=== PATIENT | male | born 1955 | race Caucasian/White ===

== ENCOUNTER 2023-07-08 23:13 | Inpatient (IN) | payer OTHER, SELFPAY ==
[2023-07-08 19:02] VITALS: BP 152/90
[2023-07-08 19:45] LABS: Glucose - Point of Care 410 mg/dl (70-99)
[2023-07-08] MEDS: NSS 1000 IV ×2 (19:57→20:59)
[2023-07-08 20:00] VITALS: BP 148/89
[2023-07-08 20:06] VITALS: BP 148/89
[2023-07-08 20:12] LABS: % Basophils 0.4 % (0-2); % Eosinophils 1.6 % (0-6); % Immature Granulocytes 0.2 % (0-0.5); % Lymphocytes 13.4 % (20.5-51.1); % Monocytes 7.9 % (1.7-9.3); % Neutrophils 76.5 % (42.2-75.2); Absolute Basophils 0.1 10^3/uL (0-0.2); Absolute Eosinophils 0.2 10^3/uL (0-0.7); Absolute Lymphocytes 1.6 10^3/uL (1.2-3.4); Absolute Neutrophils 9.3 10^3/uL (1.4-6.5); Hematocrit 39.8 % (39.0-52.0); Hemoglobin 12.3 g/dL (13.0-18.0); Mean Corp Hgb Conc. 30.9 g/dL (33.0-37.0); Mean Corpuscular Hgb 24.3 pg (27.0-31.0); Mean Corpuscular Volume 78.7 fL (80.0-94.0); Mean Platelet Volume 11.5 fL (7.4-10.4); Nucleated Red Blood Cells % 0 % (-); Platelet Count 232 10^3/uL (130-400); Red Blood Cell Count 5.06 10^6/uL (4.70-6.10); Red Cell Dist. Width 15.3 % (11.5-14.5); White Blood Cell Count 12.2 10^3/uL (4.8-10.8)
[2023-07-08 20:23] LABS: Lactic Acid 1.5 mmol/L (0.7-2.0)
[2023-07-08 20:26] LABS: ALT (SGPT) 10 U/L (0-50); AST (SGOT) 12 U/L (17-59); Albumin 4.3 g/dl (3.5-5.0); Alkaline Phosphatase 111 U/L (38-126); Blood Urea Nitrogen 25 mg/dl (9-20); Calcium 9.9 mg/dl (8.4-10.2); Carbon Dioxide 27 mmol/L (22-30); Chloride 94 mmol/L (98-107); Glucose 432 mg/dl (70-99); Potassium 4.7 mmol/L (3.5-5.1); Sodium 131 mmol/L (135-145); Total Bilirubin 0.6 mg/dl (0.2-1.3); eGFR > 60.00
[2023-07-08 20:57] LABS: Glucose - Point of Care 373 mg/dl (70-99)
[2023-07-08] MEDS: MORPHINE SULFATE 4 MG IV (20:59)
[2023-07-08 21:00] VITALS: BP 153/88
[2023-07-08] MEDS: VANCOCIN 200 IV (21:00)
--- NOTE | 2023-07-08 21:10 | ED.GENMED ---
History of Present Illness
General
Chief Complaint: Skin Problem
Source: patient
Exam Limitations: none
Time Seen by Provider: 07/08/23 19:38
Travel History
Have you had any contact with someone who has COVID-19?: No
Do you have any symptoms of coronavirus? Fever > 100 degrees, chills, cough, shortness of breath, sore throat, loss of taste or smell, muscle aches, or headache?: No
History of Present Illness
History of Present Illness:
Six 7-year-old male who presents with swelling in his left neck. Sent by urgent care. Patient states this started about 2 weeks ago. He noticed a little bit of swelling. Patient admits that he used to be on insulin but his and he is
scared of needles. He is on metformin and admits that he does not take care of his diabetes well. Patient denies fevers. Does report pain in the area.
Past History
Past History
ED Past Medical History: HTN, Hypercholesterolemia and NIDDM
Social History
Tobacco: Smoker
Alcohol: Occasional
Drug: None
Personal:
Living: with family
Employment: Retired
Family History
Family History: Diabetes
Phy Exam
Physical Exam
Physical Exam:
CONSTITUTIONAL Patient alert and oriented to person, place and time. Well-appearing. Vital signs reviewed.
HEAD atraumatic, normocephalic.
EYES eyelids normal to inspection, Pupils equally round and reactive to light, Extraocular muscles intact, Conjunctiva normal, Sclera normal.
NECK normal range of motion, Trachea midline, proximal 6 cm x 5 cm mass/abscess to the left upper neck overlying the left mastoid process. There is redness and warmth. There is no active drainage. There is some fluctuance..
RESPIRATORY CHEST No respiratory distress noted, Chest expansion equal, Bilateral breath sounds clear.
CARDIOVASCULAR regular with ectopy.
UPPER EXTREMITY range of motion normal, Motor strength normal, no cyanosis, no edema.
LOWER EXTREMITY range of motion normal, Motor strength normal, no cyanosis, no edema.
NEURO Speech normal, No focal motor deficits, Earnest coma scale 15, Memory normal, Cranial Nerves intact to screening exam.
SKIN skin warm, dry, and normal in color.
Course
Orders/Labs/Results
Orders:
Orders
07/08/23 19:46
0.9% Sodium Chloride 1000 ml [Nss] 1,000 ml IV BOLUS
07/08/23 19:56
Complete Blood Count/With Diff Urgent
Comprehensive Metabolic Panel Urgent
Lactic Acid Q4H
Comment: CANCEL 2nd LACTIC ACID IF 1st LACTIC ACID IS LESS THAN 2
Blood Culture Q30M
AMARI Source: Blood/Venous
Specimen Description:
Blood Culture Q30M
AMARI Source: Blood/Venous
Specimen Description:
07/08/23 20:10
EKG [Electrocardiogram (*1)] Urgent
Reason for Study: Atrial Fibrillation
07/08/23 20:11
EKG- Treatment ONCE
07/08/23 20:52
0.9% Sodium Chloride 1000 ml [Nss] 1,000 ml IV BOLUS
Morphine Sulfate 4 mg IV NOW STA
Vancomycin 1 Gram/200 ml [Vancocin] 1 gram in 200 ml IV NOW
07/08/23 20:53
CT Neck With Iv Contrast Urgent
Comment:
Reason For Exam: L neck/mastoid abscess, r/o mastoiditis
Abnormal Lab Results
07/08/23 07/08/23 07/08/23
19:39 19:56 20:55
WBC 12.2 H 10^3/uL
(4.8-10.8)
Hgb 12.3 L g/dL
(13.0-18.0)
MCV 78.7 L fL
(80.0-94.0)
MCH 24.3 L pg
(27.0-31.0)
MCHC 30.9 L g/dL
(33.0-37.0)
RDW 15.3 H %
(11.5-14.5)
MPV 11.5 H fL
(7.4-10.4)
Absolute Neuts (auto) 9.3 H 10^3/uL
(1.4-6.5)
Absolute Monos (auto) 1.0 H 10^3/uL
(0.1-0.6)
Neutrophils % 76.5 H %
(42.2-75.2)
Lymphocytes % 13.4 L %
(20.5-51.1)
Sodium 131 L mmol/L
(135-145)
Chloride 94 L mmol/L
(98-107)
BUN 25 H mg/dl
(9-20)
Glucose 432 H mg/dl
(70-99)
AST 12 L U/L
(17-59)
POC Glucose 410 H mg/dl 373 H mg/dl
(70-99) (70-99)
07/08/23 19:56
07/08/23 19:56
Vital Signs
Initial and Last Documented VS:
Initial Vital Signs
Temp Pulse Resp BP Pulse Ox
98.4 F 90 24 152/90 99
07/08/23 19:02 07/08/23 19:02 07/08/23 19:02 07/08/23 19:02 07/08/23 19:02
Last Documented Vital Signs
Temp Pulse Resp BP Pulse Ox
99.6 F 83 25 148/89 95
07/08/23 20:58 07/08/23 20:06 07/08/23 20:06 07/08/23 20:06 07/08/23 20:06
MDM/Problems Addressed
Differential Diagnosis Includes:
Mastoiditis, skin abscess, DKA, hyperglycemia, electrolyte imbalance, dehydration
MDM/Problems Addressed:
Abscess, severe acute hyperglycemia, pseudohyponatremia
*Pulse Oximetry
Patient hypoxic: no
*EKG
Interpreted by ED Provider?: Yes
Interpretation: abnormal
Rate: normal
Rhythm: sinus and PAC's
Ischemia: non-specific ST changes
*Sound Installation Worker Interpretation
Rate: normal
Interpretation: abnormal
Rhythm: sinus and PAC's
*Critical Care Note
Total Time (30-74mins, 75-104mins- exclusive of procedures): 40 minutes
Data Reviewed
Review of Other/Old Records Reveals: Discharge Summary (2019 discharge summary reviewed)
Source: patient
Prescriptions/Medications Considered But Not Given:
Considered insulin drip but no acidosis. Suspect pure hyperglycemia
Patient Management
Discussion with other providers: Hospitalist
Escalation/DeEscalation of care consider admission/obs:
Patient is IV antibiotics and IV fluids. Continue insulin and blood glucose control. Likely will benefit from surgical or ENT consultation. Check CT to rule out mastoiditis and just overlying infection. Admit
ED Attending Note
-
Portions of this chart may have been created with voice recognition software.� Occasional wrong word or��sound alike� substitutions may have occurred due to the inherent limitations of voice recognition software.
Discharge Plan
Departure
Patient Disposition: Admit
Date of Disposition: 07/08/23
Time of Disposition: 21:14
Admit to: Telemetry
Presentation/result/management discussed w/ accepting MD/DO: Hospitalist
Discharge Problem:
Abscess, neck, Acute hyperglycemia
Prescriptions:
No Action
levothyroxine 75 MCG tablet
75 mcg PO DAILY AT 0700
metoprolol tartrate 25 MG tablet
12.5 mg PO BID
omega 7-vyg-fyc-fish oil [Fish Oil] 1 EACH capsule
2 ea PO BID
lurasidone [Latuda] 20 MG tablet
80 mg PO HS
fluoxetine 20 MG capsule
20 mg PO
gabapentin 300 MG capsule
800 mg PO TID
moxifloxacin [Vigamox] 0.5 % drops
1 drp OPHTHALMIC BID
semaglutide [Ozempic] 0.25 MG/0.2 ML pen injector
0.5 mg SQ WEEKLY
ipratropium-albuterol [Combivent Respimat] 1 PUFF mist
1 puff PO Q6HPRN PRN (Reason: wheeze/sob)
insulin glargine [Lantus U-100 Insulin] 1,000 UNITS/10 ML solution
45 units SC Q12 0RF
fluticasone propionate [Flovent HFA] 1 PUFF HFA aerosol inhaler
2 puff inhalation R BID Qty: 3 3RF
insulin aspart U-100 [Novolog FlexPen U-100 Insulin] 300 UNITS/3 ML insulin pen
26 units SC AC Qty: 180 3RF
Patient Comments:
per prescription: 55 units under the skin every morning before meal and inject 40 units at noon before meals and inject 45 units in the evening before meals (administered five to ten minutes prior to/before meals)
rosuvastatin [Crestor] 40 MG tablet
40 mg PO HS Qty: 90 0RF
famotidine 20 MG tablet
20 mg PO HS Qty: 90 3RF
Interventions
Interventions:
*Risk Screen - Suicide Last Done: 07/08/23 19:02
*General Assessment Last Done: 07/08/23 20:06
*Neglect/Abuse Screening Last Done: 07/08/23 19:02
ED-Skin Assessment Last Done: 07/08/23 21:12
[2023-07-08 21:11] VITALS: BMI 28.2
[2023-07-08] MEDS: NOVOLOG vial 8 UNITS SC (21:20)
[2023-07-08 22:00] VITALS: BP 154/79
[2023-07-08 22:20] LABS: Glucose - Point of Care 351 mg/dl (70-99)
--- NOTE | 2023-07-08 22:31 | HPS.HSE ---
Family Physician
-
Family Physician: Melina Rivera
Chief Complaint
-
neck abscess
History of Present Illness
The patient is a 67 yo male with PMH significant for DM, essential HTN, HLD, uncontrolled DM - pt has fear of needles (self administering needles) and cannot give himself insulin, presents due to an enlarging left lateral posterior neck mass that is
associated with severe neck pain, redness, swelling behind left ear. Sent to ED by Urgent care. He is only taking Metformin 1000 mg TID currently. Glucose 400s in ED. No fevers, no chills, no n/v/d, no abdominal complaints, no CP, no SOB.
ED txt:
IV Vancomycin
IV Fluids
SQ insulin 8 units
WBC 12.2, MCV 78.7, Hgb 12.3, Glucose 432, Na 131
Medical History
Past Medical History
Past Medical History: Reports GERD, HTN, Hypercholesterolemia, IDDM (not taking insulin since 1 year ago) and Other (Neuropathy, ambulatory dysfunction, schizophrenia, sleep apnea, L4-5 herniated disc)
Past Surgical History: Reports None
Social History
Tobacco: Smoker
Alcohol: Occasional
Drug: None
Family History
Family History: Not pertinent
Allergies / Home Medications
Allergies reflects when Allergies were last updated in [employer].
Home Medications with original date entered in [facility] [employer]
Allergy/Medication List:
Allergies
Allergy/AdvReac Type Severity Reaction Status Date / Time
No Known Allergies Allergy Verified 07/08/23 19:05
Home Medications
Needs updated med rec
famotidine 20 mg tablet 20 mg PO HS #90 tabs 05/19/15
fluticasone propionate 110 mcg/actuation HFA aerosol inhaler (Flovent HFA) 2 puff inhalation R BID ##3 05/19/15
insulin aspart U-100 100 unit/mL (3 mL) subcutaneous pen (Novolog FlexPen U-100 Insulin aspart) 26 units (0.26 mL) SC AC ##180 05/19/15
rosuvastatin 40 mg tablet (Crestor) 40 mg PO HS ##90 05/19/15
fluoxetine 20 mg capsule 20 mg PO 04/13/19
gabapentin 300 mg capsule 800 mg PO TID 04/13/19
ipratropium 20 mcg-albuterol 100 mcg/actuation mist for inhalation (Combivent Respimat) 1 puff PO Q6HPRN PRN wheeze/sob 04/13/19
levothyroxine 75 mcg tablet 75 mcg PO DAILY AT 0700 04/13/19
lurasidone 20 mg tablet (Latuda) 80 mg PO HS 04/13/19
metoprolol tartrate 25 mg tablet 12.5 mg PO BID 04/13/19
moxifloxacin 0.5 % eye drops (Vigamox) 1 drp OPHTHALMIC BID 04/13/19
omega 9-mnv-dzr-fish oil 300 mg-1,000 mg capsule (Fish Oil) 2 ea PO BID 04/13/19
semaglutide 0.25 mg or 0.5 mg (2 mg/1.5 mL) subcutaneous pen injector (Ozempic) 0.5 mg SQ WEEKLY 04/13/19
insulin glargine 100 unit/mL subcutaneous solution (Lantus U-100 Insulin) 45 units (0.45 mL) SC Q12 04/14/19 - not taking
Review of Systems
-
A 12 point ROS was completed and negative except as noted: Yes
Physical Exam
Vital Signs
Vital Signs
Temp Pulse Resp BP Pulse Ox
99.6 F 89 20 153/88 95
07/08/23 20:58 07/08/23 21:15 07/08/23 21:15 07/08/23 21:00 07/08/23 20:06
Physical Exam
General: Well Developed, Well Nourished, No Apparent Distress and Conversant
HEENT: Anicteric, Moist mucous membranes and Other (large red indurated mass posterior mastoid region along SCM left side fluctuant painful to touch)
Respiratory: Clear
Cardiac: S1/S2 and Regular Rhythm
GI: Soft, Non Tender and Non Distended
Musculoskeletal: No Clubbing, No Cyanosis and No Edema
Skin: Warm and Dry
Neuro: AO x 3 and No Motor Deficits
Psych: Calm
Laboratory Results
-
07/08/23 19:56
07/08/23 19:56
Laboratory Results
Lactic Acid Cancelled 07/08/23 23:45
Total Bilirubin 0.6 mg/dl (0.2-1.3) 07/08/23 19:56
AST 12 U/L (17-59) L 07/08/23 19:56
ALT 10 U/L (0-50) 07/08/23 19:56
Alkaline Phosphatase 111 U/L (38-126) 07/08/23 19:56
Data Reviewed
-
CT Scan: Report Reviewed by me (see below)
Impression/Plan
-
IMPRESSION:The patient is a 67 yo male with PMH significant for DM, essential HTN, HLD, uncontrolled DM - pt has fear of needles (self administering needles) and cannot give himself insulin, presents due to an enlarging left lateral posterior neck
mass that is associated with severe neck pain, redness, swelling behind left ear. No fevers, no chills, no n/v/d, no abdominal complaints, no CP, no SOB.
ED txt:
IV Vancomycin
IV Fluids
SQ insulin 8 units
WBC 12.2, MCV 78.7, Hgb 12.3, Glucose 432, Na 131
CT neck:
There is an approximately 7 x 3 x 9.5 cm soft tissue mass in the subcutaneous tissues of the upper posterior left neck extending along the posterior margin of the left sternocleidomastoid and anterior lateral margin of the trapezius musculature.
There is a small 7 mm low-density collection at the central portion of this mass suggesting abscess, however, the bulk of this mass is soft tissue density. This is probably inflammatory/infectious. Posttraumatic hematoma and inflammatory stranding
is included in the differential diagnosis.
Assessment:
#Left neck abscess with Large 7 x 3 x 9.5 cm soft tissue mass, likely inflammatory/infectious
-ENT consultation
-continue IV Vancomycin
-blood cx pending
-gentle IVF for 1 more liter
#DM, uncontrolled type 2, IDDM not taking insulin currently due to fear of self-administering needles
-restart Lantus, hold metformin
-SSI
-CM consultation/Sintering Press Operator consultation
-monitor glucose and adjust regimen accordingly
#Peripheral Neuropathy
-Continue Gabapentin-pt currently takes 1000 mg BID
DVT proph - Lovenox
Full Code
[2023-07-08 23:00] VITALS: BP 160/96
[2023-07-09] VITALS (7 sets, daily range): BP systolic 110–151; BP diastolic 62–99; BMI 27.9
[2023-07-09 00:40] LABS: Glucose - Point of Care 289 mg/dl (70-99)
[2023-07-09] MEDS: NSS 1000 IV (00:47)
[2023-07-09] MEDS: LEVEMIR 0.100000000000000006 UNITS SC (00:47)
[2023-07-09] MEDS: VANCOCIN 200 IV (00:49)
[2023-07-09] MEDS: DILAUDID 0.5 MG IV ×2 (00:50→21:34)
--- NOTE | 2023-07-09 01:01 | PTCARENOTE ---
Received patient from ED via stretcher. Pt AAOX3. VSS. Pox: 95% RA. IVFs infusing without difficulty. Call staples within reach. Plan of care ongoing.
[2023-07-09 06:45] LABS: % Basophils 0.4 % (0-2); % Eosinophils 2.4 % (0-6); % Immature Granulocytes 0.3 % (0-0.5); % Monocytes 8.6 % (1.7-9.3); % Neutrophils 74.3 % (42.2-75.2); Absolute Basophils 0.1 10^3/uL (0-0.2); Absolute Eosinophils 0.3 10^3/uL (0-0.7); Absolute Lymphocytes 1.6 10^3/uL (1.2-3.4); Absolute Neutrophils 8.6 10^3/uL (1.4-6.5); Hematocrit 35.3 % (39.0-52.0); Hemoglobin 10.8 g/dL (13.0-18.0); Mean Corp Hgb Conc. 30.6 g/dL (33.0-37.0); Mean Corpuscular Hgb 24.1 pg (27.0-31.0); Mean Corpuscular Volume 78.8 fL (80.0-94.0); Nucleated Red Blood Cells % 0 % (-); Platelet Count 218 10^3/uL (130-400); Red Blood Cell Count 4.48 10^6/uL (4.70-6.10); Red Cell Dist. Width 15.2 % (11.5-14.5); White Blood Cell Count 11.6 10^3/uL (4.8-10.8)
[2023-07-09 07:09] LABS: Blood Urea Nitrogen 15 mg/dl (9-20); Calcium 8.9 mg/dl (8.4-10.2); Carbon Dioxide 26 mmol/L (22-30); Chloride 100 mmol/L (98-107); Estimated Creatinine Clearance 98 ml/min; Glucose 287 mg/dl (70-99); Potassium 4.4 mmol/L (3.5-5.1); Sodium 134 mmol/L (135-145); eGFR > 60.00
[2023-07-09 07:44] LABS: Glucose - Point of Care 304 mg/dl (70-99)
[2023-07-09] MEDS: NOVOLOG FLEXPEN-MODERATE RESISTANCE 7 UNITS SC (09:40)
--- NOTE | 2023-07-09 09:58 | PHA.VAN.IN ---
Assessment
- Assessment
Renal Function: Appears similar to baseline
AUC Dosing Plan
- Dosing Variables
Dosing Weight (kg): 93
Dosing CrCl (ml/min): 98
Vd coefficient (L/kg): 0.7
- Empiric Dosing
Initial / Loading Dose: 2000mg (1g 07/07 21:00 PLUS 1g 07/08 00:49)
Maintenance Regimen: Vanc 1250mg Q12H - starting 07/09 0600 plus 1500mg x1 at 1600 tonight
Estimated AUC (mcg*h/mL): 477
Estimated Peak (mcg*h/mL): 29.9
Estimated Trough (mcg/ml): 12.1
Estimated Half Life (H): 8.1
- Monitoring
No levels ordered at this time: consider levels in next few days
Pharmacokinetics Vancomycin I
- -
Patient Age: 67
Patient Sex: Male
Vancomycin Day #: 1
Indication: Skin And Soft Tissue
Requesting Provider: Dr. Cadet
Pertinent Antimicrobial Allergies:
NKDA
Height / Weight:
Height 6 ft
Actual Weight 93.077 kg
Pertinent Past Medical History: DM
- Vital Signs / Lab Results
Temp Pulse Resp BP Pulse Ox
98.2 F 66 18 151/78 96
07/09/23 07:00 07/09/23 07:00 07/09/23 07:00 07/09/23 07:00 07/09/23 09:10
Lab Results - Hematology
07/08/23 07/09/23
19:56 06:27
WBC 12.2 H 11.6 H
Lab Results - Chemistry
07/08/23 07/09/23
19:56 06:27
BUN 25 H 15
Creatinine 1.0 0.8
Estimated Creat Clear 98
Albumin 4.3
07/08/23 07/08/23
19:56 23:45
Lactic Acid 1.5 Cancelled
--- NOTE | 2023-07-09 10:08 | PHANOTE ---
Med rec note- [place] and does not know is medication, tried to talk to patient over the phone with him but he does not recognize any of the names of the drug name that are in [facility] records. patient has
no ecw and no pharmacy records to compare to. patient did say he stopped using his injectable diabetic medication cause he can not give him self needles
[2023-07-09 10:10] LABS: Glycohemoglobin (HgbA1c) 13.9 % (4.0-5.6)
--- NOTE | 2023-07-09 11:50 | CM ---
Reviewed chart, met with patient to obtain information for assessment. Patient stated that he lives alone in a [place] and over community in a single home with no steps. Patient described himself as independent with his ADLs, personal care, dressing,
bathing, toileting and ambulates without device.
He denied any DME.
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
He has never had VN services. He has never been to a SNF.
Patient has a prescription plan and uses [facility] in [place] for all of his medications.
His PCP is, Melina Rivera DO.
Patient stated that he is frightened. Emotional support provided. He stated that he is fearful of needles. Discussed with hematology nurse educator.
Patient stated that she wanted pain medications and to use the bathroom. RN updated.
Plan: Case management will continue to follow and assist with discharge planning. Patient would like to return home when stable.
[2023-07-09] MEDS: DILAUDID 0.25 MG IV (11:57)
[2023-07-09 12:04] LABS: Glucose - Point of Care 239 mg/dl (70-99)
[2023-07-09] MEDS: NOVOLOG FLEXPEN-MODERATE RESISTANCE 3 UNITS SC ×2 (13:29→17:36)
--- NOTE | 2023-07-09 14:19 | W.PN.HOSP.TC ---
Addendum entered and electronically signed by Balta Shaikh MD 07/09/23 22:04:
Attending Addendum-
I saw and evaluated the patient. I reviewed the resident�s note and agree with findings and plan as documented in the resident�s note. Patient complains of left neck pain, 'Im going to makie it right?' Full 12 point ROS reviewed and negative except
as documented. Exam: GEN nad neck- left sided neck mass @ [id number] sravan tender fluctuant non drainaing heart RRR lungs clear abd soft LE no edema Plan:
# Left Neck Mass- likely infectious, c/s I rad for drain and culture- reviewed notes not large enough for drainage, add zosyn for extended coverage, cont vanco, ent c/s pend, cbc in am cont wound care
# Uncontrolled IDDM- hba1c- start DM education, counselled at great length re compliance/diet, will need to be on insulin as OP, start regimen while in house BB and mealtime- 12, cont to trend, accucheck q ac q hs
# Leukocytosis- cont to monitor repeat CBC in am
# Hyponatremia- mild- cont IVF repeat in am
# HLD- cont meds
# Tobacco Abuse- start socorro patch counselled re cessation
# GERD- cont meds
# Hypothyroidism- cont meds
# Peripheral Neuropathy- cont meds
# Depression- cont meds
# Pulmonary Nodule- advised to follow up as OP
Time spent coordinating care, review of plan of care with resident, review of records, med rec, consults, notes, labs, rads, d/w nursing � 53 mins
Original Note:
Today's Communication/Plan
-
Basal insulin increased to 12 units
NovoLog 4 units with each meal
Continue sliding scale
Zosyn for broader coverage
Per IR drainage of the abscess not needed now, continue IV antibiotics only
Assessment / Plan
Assessment / Plan
Impression
Left neck abscess
Uncontrolled diabetes mellitus type 2
Hypertension
History of bipolar disorder
Current tobacco user
Plan
The patient is a 67 yo male with PMH significant for DM, essential HTN, HLD, uncontrolled DM - pt has fear of needles (self administering needles) and cannot give himself insulin, presents due to an enlarging left lateral posterior neck mass that is
associated with severe neck pain, redness, swelling behind left ear. No fevers, no chills, no n/v/d, no abdominal complaints, no CP, no SOB.
Left neck abscess
Continue vancomycin
Start Zosyn for broader coverage, creatinine 0.8
Consulted IR. TT IR, from their standpoint drainage is not needed, will improve with IV antibiotics alone
CBC BMP in a.m.
Uncontrolled diabetes mellitus type 2
Increase basal insulin to 12 units
Start NovoLog 4 units 15 minutes before each meal
Continue sliding scale
Hold metformin
Goal blood glucose to be less than 200, close to 150
Monitor blood glucose level, serial Accu-Cheks
Consult diabetic nurse practitioner
Hypertension
continue ASA
History of bipolar disorder
Continue Seroquel, fluoxetine
Current current tobacco user
A pack a day
Nicotine patch ordered
Anticipated Discharge: > 48 hours
Subjective/Interval History
-
Date of Service: July 09, 2023
Patient denies SOB, CP.
Objective Data
-
Labs:
Laboratory Results
07/09/23
06:27
WBC 11.6 H
Hgb 10.8 L
Hct 35.3 L
Plt Count 218
Sodium 134 L
Potassium 4.4
Chloride 100
Carbon Dioxide 26
BUN 15
Creatinine 0.8
Glucose 287 H
Calcium 8.9
Vital Signs:
Vital Signs
Temp Pulse Resp BP Pulse Ox
98.3 F 70 17 148/76 95
07/09/23 11:00 07/09/23 11:00 07/09/23 11:00 07/09/23 11:00 07/09/23 11:00
I&O
07/08/23 07/09/23 07/10/23
06:59 06:59 06:59
Intake Total 200 / 200
Balance 200 / 200
Review of Systems
-
History Source: Patient
All other systems: Reviewed and negative (except mentioned)
Skin: Reports Other (pain)
Physical Exam
-
General: Well Developed
HEENT: Normocephalic and Atraumatic
Respiratory: Clear to Auscultation
Cardiac: Regular Rhythm and S1/S2
GI: Soft, Nontender and Nondistended
Musculoskeletal: No Edema
Skin: Warm (Large hard fluctuant, erythematous mass posterior to mastoid region along the sternocleidomastoid on left side, tender to touch)
Neuro: AO x 3
Psych: Calm
Data Reviewed
-
Labs: Labs Reviewed by me and Discussed with Physician
--- NOTE | 2023-07-09 14:35 | W.PN.UPDATE ---
Update Note
Progress Note Update
- CT scan from last night reviewed.
- Asymmetric soft attenuation/inflammation posterior to left ear with small central focus of decreased attenuation, which still measures greater than fluid attentuation
- Currently no role for US guided aspiration. Would continue IV antibiotics, re-evaluate as necessary.
[2023-07-09] MEDS: PROZAC 40 MG PO (16:24)
[2023-07-09] MEDS: ZOSYN 50 IV ×2 (16:24→21:31)
[2023-07-09] MEDS: NICODERM TRANSDERMAL 7 MG TRANSDERM (16:24)
[2023-07-09 16:56] LABS: Glucose - Point of Care 213 mg/dl (70-99)
[2023-07-09] MEDS: ZESTRIL 5 MG PO (17:36)
[2023-07-09] MEDS: VANCOCIN 300 ML IV (17:36)
[2023-07-09] MEDS: VANCOCIN 300 MG IV (17:36)
[2023-07-09] MEDS: NOVOLOG FLEXPEN 4 UNITS SC (17:41)
[2023-07-09] MEDS: SEROQUEL 400 MG PO (21:31)
[2023-07-09] MEDS: LEVEMIR 0.119999999999999996 UNITS SC (21:34)
[2023-07-09 21:40] LABS: Glucose - Point of Care 228 mg/dl (70-99)
[2023-07-10 03:40] VITALS: BP 101/58
[2023-07-10] MEDS: FLUSH (NSS) 2 FLUSH IV ×2 (04:10→22:17)
[2023-07-10] MEDS: ZOSYN 50 IV ×4 (04:10→22:15)
[2023-07-10] MEDS: DILAUDID 0.5 MG IV ×3 (04:13→19:00)
[2023-07-10] MEDS: VANCOCIN 275 MG IV ×2 (05:13→17:35)
[2023-07-10 07:00] VITALS: BP 126/74
[2023-07-10 07:10] LABS: % Basophils 0.6 % (0-2); % Eosinophils 3.1 % (0-6); % Immature Granulocytes 0.4 % (0-0.5); % Lymphocytes 19.5 % (20.5-51.1); % Monocytes 8.1 % (1.7-9.3); % Neutrophils 68.3 % (42.2-75.2); Absolute Basophils 0.1 10^3/uL (0-0.2); Absolute Eosinophils 0.3 10^3/uL (0-0.7); Absolute Lymphocytes 2.1 10^3/uL (1.2-3.4); Absolute Monocytes 0.9 10^3/uL (0.1-0.6); Absolute Neutrophils 7.3 10^3/uL (1.4-6.5); Hematocrit 33.2 % (39.0-52.0); Hemoglobin 9.9 g/dL (13.0-18.0); Mean Corp Hgb Conc. 29.8 g/dL (33.0-37.0); Mean Corpuscular Hgb 23.5 pg (27.0-31.0); Mean Corpuscular Volume 78.9 fL (80.0-94.0); Mean Platelet Volume 10.7 fL (7.4-10.4); Nucleated Red Blood Cells % 0 % (-); Platelet Count 196 10^3/uL (130-400); Red Blood Cell Count 4.21 10^6/uL (4.70-6.10); Red Cell Dist. Width 15.3 % (11.5-14.5); White Blood Cell Count 10.6 10^3/uL (4.8-10.8)
[2023-07-10 07:46] LABS: Blood Urea Nitrogen 15 mg/dl (9-20); Calcium 8.8 mg/dl (8.4-10.2); Carbon Dioxide 25 mmol/L (22-30); Chloride 104 mmol/L (98-107); Estimated Creatinine Clearance 87 ml/min; Glucose 230 mg/dl (70-99); Potassium 4.1 mmol/L (3.5-5.1); Sodium 133 mmol/L (135-145); eGFR > 60.00
[2023-07-10 08:33] LABS: Glucose - Point of Care 221 mg/dl (70-99)
--- NOTE | 2023-07-10 09:01 | PHA.VAN.FU ---
Vancomycin Assessment / Plan
- Assessment
Renal Function: Stable
WBC's are: WNL
In the past 24 hrs, patient has been: Afebrile
Concomitant Antimicrobials: piperacillin/tazobactam
- Dosing Plan
Continue: Vanc 1250mg Q12H
- Monitoring Plan
No level(s) ordered at this time: consider levels in next few days
- Follow Up
Pharmacy will continue to follow.
Vancomycin Follow UP
- -
Patient Age: 67
Patient Sex: Male
Vancomycin Day #: 2
Indication: Skin And Soft Tissue
Requesting Provider: Dr. Cadet
Pertinent Antimicrobial Allergies:
NKDA
Height / Weight:
Height 6 ft
Actual Weight 93.077 kg
Pertinent Past Medical History: DM
- Vital Signs / Lab Results
Temp Pulse Resp BP Pulse Ox
97.3 F 69 17 126/74 96
07/10/23 07:00 07/10/23 07:00 07/10/23 07:00 07/10/23 07:00 07/10/23 07:00
Lab Results - Hematology
07/08/23 07/09/23 07/10/23
19:56 06:27 06:28
WBC 12.2 H 11.6 H 10.6
Lab Results - Chemistry
07/08/23 07/09/23 07/10/23
19:56 06:27 06:28
BUN 25 H 15 15
Creatinine 1.0 0.8 0.9
Estimated Creat Clear 98 87
Albumin 4.3
07/08/23 07/08/23
19:56 23:45
Lactic Acid 1.5 Cancelled
Microbiology Results
07/08/23 19:56 Blood Culture - Preliminary
Blood/Venous No Growth in 24 hours- Final report to follow
07/08/23 19:56 Blood Culture - Preliminary
Blood/Venous No Growth in 24 hours- Final report to follow
[2023-07-10] MEDS: PROZAC 40 MG PO (09:10)
[2023-07-10] MEDS: ZESTRIL 5 MG PO (09:10)
[2023-07-10] MEDS: NOVOLOG FLEXPEN-MODERATE RESISTANCE 3 UNITS SC ×2 (09:11→13:25)
[2023-07-10] MEDS: ASPIR LOW (ENTERIC COATED) 81 MG PO (09:11)
[2023-07-10] MEDS: NICODERM TRANSDERMAL 7 MG TRANSDERM (09:11)
[2023-07-10] MEDS: NOVOLOG FLEXPEN 4 UNITS SC (09:12)
--- NOTE | 2023-07-10 10:05 | PN.DE.MGMTRT ---
Insulin Management
- -
07/10/2023 Diabetes Management Consult
Patient admitted for swelling L neck, mastoiditis vs skin abscess. PMH HCL, HTN, type 2 diabetes for ~ 15 years. Prior to admission was taking 1000 mg metformin BID. A1C on admission 13.9% cr .9, eGFR >60.
Met with patient at bedside, awake alert and oriented. His personal hygiene is poor, he is able to discuss his diabetes care. He admits he was prescribed insulin in the past but his helped his with it, she has so he stopped it.
Reviewed insulin administration and provided printed instructions for each step.
Glucose > 200 yesterday. AC novolog started 4 units, first dose with dinner. HS glucose 228. Levemir 12 units @ hs started last devonte, fasting glucose this AM 230 venous. Levemir to be off market 07/14, will change to lantus 16 units @ hs. Will
increase AC novolog to 7 units.
Will provide new glucose monitor.
Patient has an appointment with the [facility] for check up on 07/11
Diabetes History
- -
Type of Diabetes: 2 requiring insulin
Pre-Admission Diabetes Regimen
07/10/23
06:28
Creatinine 0.9
Lab Results
Hemoglobin A1c 13.9 % (4.0-5.6) H 07/09/23 06:27
Insulin Pump Settings
IP Diabetes Regimen
07/09/23 07/09/23 07/09/23
12:03 16:54 21:38
Glucose
POC Glucose 239 H 213 H 228 H
07/10/23 07/10/23
06:28 08:27
Glucose 230 H
POC Glucose 221 H
Meal type: Dinner
Meal type: Lunch
Meal type: Breakfast
Amount consumed: 10%
Amount consumed: 0
Amount consumed: 100%
Patient Education
[2023-07-10] MEDS: GLUCOPHAGE 1000 MG PO ×2 (10:14→17:24)
[2023-07-10 11:08] LABS: Glucose - Point of Care 241 mg/dl (70-99)
[2023-07-10 11:26] VITALS: BP 110/66
--- NOTE | 2023-07-10 13:00 | CON.MD ---
Consultation - Medical
-
L neck infection
67 yo c DM, HTN presents with 1 week Hx of swelling L neck
CT shows subQ soft tissue swelling with small focal area of hypodensity
Placed on IV Vanco, sl improvment. Unasyn added
PE - pt notes discomfort L neck
L neck with induration, cellulitis
With pressure , some purulence expressed, suggesting possible infected sebaceous cyst
A/p L neck infection
likely infected sebaceous cyst, soft tissue infection
no evidence of otitis
after local anesthesia, I & D performd
some purulent material expressed
sent for aerobic and anaerobic cx
warm compressess TID, cont present antibx, DM management
await culture results
[2023-07-10] MEDS: DILAUDID 0.25 MG IV ×2 (13:15→22:15)
[2023-07-10] MEDS: NOVOLOG FLEXPEN 7 UNITS SC (13:25)
[2023-07-10] MEDS: XYLOCAINE 1% WITH EPINEPHRINE 1 ML INFIL (13:25)
[2023-07-10 15:27] VITALS: BP 109/65
--- NOTE | 2023-07-10 16:35 | W.PN.HOSP.TC ---
Addendum entered and electronically signed by Balta Shaikh MD 07/10/23 21:16:
Attending Addendum-
I saw and evaluated the patient. I reviewed the resident�s note and agree with findings and plan as documented in the resident�s note. Continues to havesignificant pain in neck. Afebrile over 24 hours. Full 12 point ROS reviewed and negative except
as documented. Exam: GEN mild distress from pain neck- left sided neck mass @ [id number] tender fluctuant non draining heart RRR lungs clear abd soft LE no edema Plan:
# Left Neck Mass- likely infected sebacious cyst, cont zosyn for extended coverage, cont vanco, ent c/s- d/w Dr. Snider- for bedside I and D - 07/09 with cx to be sent, alem hedrick acoordingly, repeat cbc in am cont wound care
# Uncontrolled IDDM- hba1c 13.!- cont daily DM education, will need to be on insulin as OP, increase regimen while in house-BB and mealtime- 16, cont to trend, accucheck q ac q hs restart metformin
# HTN- increase new lisinopril, cont to monitor closely
# Leukocytosis- resolved, cont to monitor repeat CBC in am
# Hyponatremia- mild- cont IVF, repeat BMP in am
# HLD- cont meds
# Tobacco Abuse- cont socorro patch counselled re cessation
# GERD- cont meds
# Hypothyroidism- cont meds
# Peripheral Neuropathy- cont meds
# Depression- cont meds
# Pulmonary Nodule- advised to follow up as OP
Time spent coordinating care, review of plan of care with resident, review of records, med rec, consults, notes, labs, rads, d/w nursing, ENT � 57 mins
Original Note:
Today's Communication/Plan
-
Incision and drainage of the abscess
Await for cultures
Restart metformin
Adjusted diabetic medications
Assessment / Plan
Assessment / Plan
Impression
Left neck abscess
Uncontrolled diabetes mellitus type 2
Hypertension
History of bipolar disorder
Current tobacco user
Plan
The patient is a 67 yo male with PMH significant for DM, essential HTN, HLD, uncontrolled DM - pt has fear of needles (self administering needles) and cannot give himself insulin, presents due to an enlarging left lateral posterior neck mass that is
associated with severe neck pain, redness, swelling behind left ear. No fevers, no chills, no n/v/d, no abdominal complaints, no CP, no SOB.
Left neck abscess
Bedside incision and drainage of the abscess done by ENT
Await for aerobic and anaerobic cultures
Continue vancomycin and Zosyn for now
Warm compresses 3 times daily
CBC BMP in a.m.
Uncontrolled diabetes mellitus type 2
Basal insulin 16 units. Changed to Lantus (Levemir off market)
Increased NovoLog dose to 7 units 15 minutes before each meal
Continue sliding scale
Restart metformin
Goal blood glucose between 1 40-180
Monitor blood glucose level, serial Accu-Cheks
Appreciate diabetic nurse practitioner evaluation
Hypertension
Increased lisinopril to 10 mg daily
History of bipolar disorder
Continue Seroquel, fluoxetine
Current current tobacco user
A pack a day
Nicotine patch ordered
Anticipated Discharge: 24 - 48 hours
Subjective/Interval History
-
Date of Service: July 10, 2023
Patient complains of pain in the left neck around the area of the abscess
Objective Data
-
Labs:
Laboratory Results
07/10/23
06:28
WBC 10.6
Hgb 9.9 L
Hct 33.2 L
Plt Count 196
Sodium 133 L
Potassium 4.1
Chloride 104
Carbon Dioxide 25
BUN 15
Creatinine 0.9
Glucose 230 H
Calcium 8.8
Vital Signs:
Vital Signs
Temp Pulse Resp BP Pulse Ox
99.1 F 67 18 109/65 96
07/10/23 15:27 07/10/23 15:27 07/10/23 15:27 07/10/23 15:27 07/10/23 15:27
I&O
07/09/23 07/10/23 07/11/23
06:59 06:59 06:59
Intake Total 200 / 200 600 / 600
Balance 200 / 200 600 / 600
Review of Systems
-
History Source: Patient
All other systems: Reviewed and negative (Except mentioned)
Musculoskeletal: Reports Other (Pain around left neck abscess)
Physical Exam
-
General: Pain
HEENT: Normocephalic and Atraumatic
Respiratory: Clear to Auscultation
Cardiac: Regular Rhythm and S1/S2
GI: Soft and Nontender
Musculoskeletal: No Edema
Skin: Warm (Tender to touch, large erythematous 3 to 4 cm fluctuant mass, pus seen on inspection)
Neuro: AO x 3
Data Reviewed
-
Labs: Labs Reviewed by me and Discussed with Physician
[2023-07-10 16:47] LABS: Glucose - Point of Care 184 mg/dl (70-99)
[2023-07-10] MEDS: NOVOLOG FLEXPEN-MODERATE RESISTANCE 1 UNITS SC (17:34)
[2023-07-10] MEDS: NOVOLOG FLEXPEN SC (17:40)
[2023-07-10 19:42] LABS: Glucose - Point of Care 173 mg/dl (70-99)
[2023-07-10 20:22] VITALS: BP 137/83
[2023-07-10 21:19] LABS: Glucose - Point of Care 168 mg/dl (70-99)
[2023-07-10] MEDS: SEROQUEL 400 MG PO (22:15)
[2023-07-10] MEDS: LANTUS 0.160000000000000003 UNITS SC (22:16)
[2023-07-11] VITALS (8 sets, daily range): BP systolic 94–110; BP diastolic 42–69
[2023-07-11] MEDS: ZOSYN 50 IV ×4 (03:49→20:57)
[2023-07-11] MEDS: FLUSH (NSS) 2 FLUSH IV (03:49)
[2023-07-11] MEDS: DILAUDID 0.5 MG IV ×4 (03:49→16:45)
--- NOTE | 2023-07-11 04:02 | DOWNTIME ---
There was a [employer] Client [employer]arn Preparation Supervisor Downtime on 07/11/2023 from 0100 to 07/11/2023 at 0322. Downtime documentation of patient's care, including medication administrations, has been reconciled in the electronic record per guidelines. Refer to the
patient's paper chart under the miscellaneous tab to see printed paper medication records and downtime forms.
[2023-07-11] MEDS: VANCOCIN 275 MG IV ×2 (05:48→18:36)
[2023-07-11 07:17] LABS: % Basophils 0.6 % (0-2); % Immature Granulocytes 0.5 % (0-0.5); % Lymphocytes 22.1 % (20.5-51.1); % Monocytes 8.4 % (1.7-9.3); % Neutrophils 64.4 % (42.2-75.2); Absolute Basophils 0.1 10^3/uL (0-0.2); Absolute Eosinophils 0.3 10^3/uL (0-0.7); Absolute Lymphocytes 1.9 10^3/uL (1.2-3.4); Absolute Monocytes 0.7 10^3/uL (0.1-0.6); Absolute Neutrophils 5.4 10^3/uL (1.4-6.5); Hematocrit 32.7 % (39.0-52.0); Hemoglobin 9.9 g/dL (13.0-18.0); Mean Corp Hgb Conc. 30.3 g/dL (33.0-37.0); Mean Corpuscular Hgb 23.9 pg (27.0-31.0); Mean Corpuscular Volume 78.8 fL (80.0-94.0); Mean Platelet Volume 10.8 fL (7.4-10.4); Nucleated Red Blood Cells % 0 % (-); Platelet Count 199 10^3/uL (130-400); Red Blood Cell Count 4.15 10^6/uL (4.70-6.10); Red Cell Dist. Width 15.2 % (11.5-14.5); White Blood Cell Count 8.4 10^3/uL (4.8-10.8)
[2023-07-11] MEDS: GLUCOPHAGE 1000 MG PO (08:00)
[2023-07-11] MEDS: PROZAC 40 MG PO (08:00)
[2023-07-11] MEDS: ASPIR LOW (ENTERIC COATED) 81 MG PO (08:01)
[2023-07-11] MEDS: NICODERM TRANSDERMAL 7 MG TRANSDERM (08:04)
[2023-07-11 08:05] LABS: Blood Urea Nitrogen 18 mg/dl (9-20); Carbon Dioxide 26 mmol/L (22-30); Chloride 101 mmol/L (98-107); Estimated Creatinine Clearance 72 ml/min; Glucose 175 mg/dl (70-99); Sodium 133 mmol/L (135-145); eGFR > 60.00
[2023-07-11 08:09] LABS: Glucose - Point of Care 166 mg/dl (70-99)
[2023-07-11 08:11] LABS: Potassium 4.1 mmol/L (3.5-5.1)
[2023-07-11] MEDS: NOVOLOG FLEXPEN 7 UNITS SC ×3 (08:13→17:39)
[2023-07-11] MEDS: NOVOLOG FLEXPEN-MODERATE RESISTANCE 1 UNITS SC ×2 (08:13→12:59)
[2023-07-11] MEDS: ZESTRIL 10 MG PO (08:23)
--- NOTE | 2023-07-11 09:07 | PHA.VAN.FU ---
Vancomycin Assessment / Plan
- Assessment
Renal Function: SCR Increasing
WBC's are: WNL
In the past 24 hrs, patient has been: Afebrile
Concomitant Antimicrobials: piperacillin/tazobactam
- Dosing Plan
Continue: Vanc 1250mg Q12H
- Monitoring Plan
Trough Level: 07/11 05:30 to ensure non-toxic
- Follow Up
Pharmacy will continue to follow.
Vancomycin Follow UP
- -
Patient Age: 67
Patient Sex: Male
Vancomycin Day #: 3
Indication: Skin And Soft Tissue
Requesting Provider: Dr. Cadet
Pertinent Antimicrobial Allergies:
NKDA
Height / Weight:
Height 6 ft
Actual Weight 93.077 kg
Pertinent Past Medical History: DM
- Vital Signs / Lab Results
Temp Pulse Resp BP Pulse Ox
97.1 F 63 18 95/55 94
07/11/23 03:48 07/11/23 03:48 07/11/23 03:48 07/11/23 03:48 07/11/23 03:48
Lab Results - Hematology
07/08/23 07/09/23 07/10/23
19:56 06:27 06:28
WBC 12.2 H 11.6 H 10.6
07/11/23
06:56
WBC 8.4
Lab Results - Chemistry
07/08/23 07/09/23 07/10/23
19:56 06:27 06:28
BUN 25 H 15 15
Creatinine 1.0 0.8 0.9
Estimated Creat Clear 98 87
Albumin 4.3
07/11/23
06:56
BUN 18
Creatinine 1.1
Estimated Creat Clear 72
Albumin
07/08/23 07/08/23
19:56 23:45
Lactic Acid 1.5 Cancelled
Microbiology Results
07/10/23 13:37 Wound Culture - Preliminary
Neck Staph aureus MRSA
Gram Stain - Preliminary
07/08/23 19:56 Blood Culture - Preliminary
Blood/Venous No Growth in 48 hours- Final report to follow
07/08/23 19:56 Blood Culture - Preliminary
Blood/Venous No Growth in 48 hours- Final report to follow
--- NOTE | 2023-07-11 09:21 | PN.DE.MGMTRT ---
Insulin Management
- -
07/11/2023 Diabetes Management Consult
Patient admitted for swelling L neck, mastoiditis vs skin abscess. PMH HCL, HTN, type 2 diabetes for ~ 15 years. Prior to admission was taking 1000 mg metformin BID. A1C on admission 13.9% cr .9, eGFR >60.
Met with patient at bedside, awake alert and oriented. His personal hygiene is poor, he is able to discuss his diabetes care. He admits he was prescribed insulin in the past but his helped his with it, she has so he stopped it.
Reviewed insulin administration and provided printed instructions for each step.
AC novolog increased to 7 units, first dose with lunch. Glucose down to 168 @ 7pm, will make no change to novolog today. Lantus 16 units @ hs started last HS, fasting glucose this AM 166.
Provided new glucose monitor and instructed, patient states he has tested his glucose in the past. Nurse reports he needed step by step assistance with insulin prep and injection. I did review steps with him. He does not have his glasses. Nurse
will try to find readers he can use
Patient has an appointment with the [facility] for check up on 07/11.
Diabetes History
- -
Type of Diabetes: 2 requiring insulin
Pre-Admission Diabetes Regimen
07/11/23
06:56
Creatinine 1.1
Lab Results
Hemoglobin A1c 13.9 % (4.0-5.6) H 07/09/23 06:27
Insulin Pump Settings
IP Diabetes Regimen
07/10/23 07/10/23 07/10/23
11:06 16:45 19:41
Glucose
POC Glucose 241 H 184 H 173 H
07/10/23 07/11/23 07/11/23
21:17 06:56 08:08
Glucose 175 H
POC Glucose 168 H 166 H
Meal type: Lunch
Meal type: Breakfast
Amount consumed: 20%
Amount consumed: 50%
Patient Education
--- NOTE | 2023-07-11 10:35 | CM ---
Reviewed chart, patient appears to be at baseline, functionally.
Plan: Case management will continue to follow and assist with discharge planning. Likely no needs at discharge.
--- NOTE | 2023-07-11 12:00 | PTCARENOTE ---
Received pt from [facility] with RN at bedside, VSS, pt resting comfortably at this time, left neck site post absess drainage CDI open to air.
[2023-07-11 12:11] LABS: Glucose - Point of Care 173 mg/dl (70-99)
--- NOTE | 2023-07-11 16:47 | W.PN.HOSP.TC ---
Addendum entered and electronically signed by Balta Shaikh MD 07/11/23 21:08:
Attending Addendum-
I saw and evaluated the patient. I reviewed the resident�s note and agree with findings and plan as documented in the resident�s note. pain in neck improved. Afebrile over 24 hours. Full 12 point ROS reviewed and negative except as documented.
Exam: GEN NAD, Neck- left sided neck mass @ [id number] tender fluctuant minimal drainage, heart RRR lungs clear abd soft LE no edema Plan:
# MRSA Left Neck mass infection- likely infected sebaceous cyst, 07/09-bedside I and D Dr. Snider, prelim cx growing MRSA, cont zosyn and vancomycin for now until cx results finalized. Repeat cbc in am cont wound care may need additional I and D.
# Hyponatremia- mild- cont to monitor repeat BMP in am
# Uncontrolled IDDM- hba1c 13.1- cont daily DM education, will need to be on insulin as OP, continue current regimen- BB and mealtime- 16, cont to trend, accucheck q ac q hs hold metformin in care requires rads involving dye or OR.
# HTN- now hypotensive decrease new lisinopril, cont to monitor closely
# Leukocytosis- resolved, cont to monitor repeat CBC in am
# Hyponatremia- mild- cont IVF, repeat BMP in am
# HLD- cont meds
# Tobacco Abuse- increase socorro patch counselled re cessation
# GERD- cont meds
# Hypothyroidism- cont meds
# Peripheral Neuropathy- cont meds
# Depression- cont meds
# Pulmonary Nodule- advised to follow up as OP
Time spent coordinating care, review of plan of care with resident, review of records, med rec, consults, notes, labs, rads, d/w nursing � 55 mins
Original Note:
Today's Communication/Plan
-
Continue vancomycin and Zosyn
Wound culture presumptive MRSA
Wait for final results
Hold metformin
Lisinopril to 5 mg
Assessment / Plan
Assessment / Plan
Impression
Left neck abscess
Uncontrolled diabetes mellitus type 2
Hypertension
History of bipolar disorder
Current tobacco user
Plan
The patient is a 67 yo male with PMH significant for DM, essential HTN, HLD, uncontrolled DM - pt has fear of needles (self administering needles) and cannot give himself insulin, presents due to an enlarging left lateral posterior neck mass that is
associated with severe neck pain, redness, swelling behind left ear. No fevers, no chills, no n/v/d, no abdominal complaints, no CP, no SOB.
Left neck abscess
Bedside incision and drainage of the abscess done by ENT
Wound culture shows presumptive MRSA, final report to follow
Continue vancomycin and Zosyn for now
Warm compresses 3 times daily
CBC BMP in a.m.
Uncontrolled diabetes mellitus type 2
Basal insulin 16 units.
Increased NovoLog dose to 7 units 15 minutes before each meal
Continue sliding scale
Hold metformin
Goal blood glucose between 1 40-180
Monitor blood glucose level, serial Accu-Cheks
Appreciate diabetic nurse practitioner evaluation
Hypertension
Blood pressure 99/55 this a.m.
Decrease lisinopril to 5 mg
History of bipolar disorder
Continue Seroquel, fluoxetine
Current current tobacco user
21 mg nicotine patch
Anticipated Discharge: 24 - 48 hours
Subjective/Interval History
-
Date of Service: July 11, 2023
Patient reports of mild pain around the left neck abscess
Objective Data
-
Labs:
Laboratory Results
07/11/23
06:56
WBC 8.4
Hgb 9.9 L
Hct 32.7 L
Plt Count 199
Sodium 133 L
Potassium 4.1
Chloride 101
Carbon Dioxide 26
BUN 18
Creatinine 1.1
Glucose 175 H
Calcium 9.0
Vital Signs:
Vital Signs
Temp Pulse Resp BP Pulse Ox
98.4 F 62 12 98/42 96
07/11/23 15:15 07/11/23 15:15 07/11/23 15:15 07/11/23 15:15 07/11/23 15:15
I&O
07/10/23 07/11/23 07/12/23
06:59 06:59 06:59
Intake Total 600 / 600 915 / 915 120 / 120
Balance 600 / 600 915 / 915 120 / 120
Review of Systems
-
History Source: Patient
All other systems: Reviewed and negative (Except mentioned)
EENT: Reports Other (Pain around the left neck abscess)
Physical Exam
-
General: Pain
HEENT: Normocephalic and Atraumatic
Respiratory: Clear to Auscultation
Cardiac: Regular Rhythm and S1/S2
GI: Soft, Nontender and Nondistended
Musculoskeletal: No Edema
Skin: Other (Drainage of pus around the left neck abscess which is still hard and tender to touch)
Neuro: AO x 3
Psych: Calm
Data Reviewed
-
Labs: Labs Reviewed by me and Discussed with Physician
[2023-07-11 16:53] LABS: Glucose - Point of Care 148 mg/dl (70-99)
[2023-07-11] MEDS: NOVOLOG FLEXPEN-MODERATE RESISTANCE SC (16:53)
[2023-07-11] MEDS: NICODERM TRANSDERMAL 21 MG TRANSDERM (18:38)
[2023-07-11] MEDS: SEROQUEL 400 MG PO (20:50)
[2023-07-11] MEDS: DILAUDID 0.25 MG IV (20:56)
[2023-07-11] MEDS: LANTUS 0.160000000000000003 UNITS SC (20:57)
[2023-07-11 21:00] LABS: Glucose - Point of Care 128 mg/dl (70-99)
[2023-07-12] VITALS (7 sets, daily range): BP systolic 105–156; BP diastolic 57–79
[2023-07-12] MEDS: TYLENOL 650 MG PO (00:39)
[2023-07-12] MEDS: ZOSYN 50 IV ×2 (03:32→08:50)
[2023-07-12] MEDS: DILAUDID 0.25 MG IV ×2 (03:38→08:49)
[2023-07-12 06:16] LABS: Vancomycin Trough 16.6 ug/ml (5-20)
[2023-07-12 06:17] LABS: % Eosinophils 5.7 % (0-6); % Immature Granulocytes 0.5 % (0-0.5); % Lymphocytes 31.2 % (20.5-51.1); % Monocytes 9.2 % (1.7-9.3); % Neutrophils 52.4 % (42.2-75.2); Absolute Basophils 0.1 10^3/uL (0-0.2); Absolute Eosinophils 0.3 10^3/uL (0-0.7); Absolute Lymphocytes 1.8 10^3/uL (1.2-3.4); Absolute Monocytes 0.5 10^3/uL (0.1-0.6); Absolute Neutrophils 3.1 10^3/uL (1.4-6.5); Hematocrit 34.3 % (39.0-52.0); Hemoglobin 10.4 g/dL (13.0-18.0); Mean Corp Hgb Conc. 30.3 g/dL (33.0-37.0); Mean Corpuscular Hgb 23.9 pg (27.0-31.0); Mean Corpuscular Volume 78.7 fL (80.0-94.0); Mean Platelet Volume 11.2 fL (7.4-10.4); Nucleated Red Blood Cells % 0 % (-); Platelet Count 203 10^3/uL (130-400); Red Blood Cell Count 4.36 10^6/uL (4.70-6.10); Red Cell Dist. Width 15.1 % (11.5-14.5); White Blood Cell Count 5.8 10^3/uL (4.8-10.8)
[2023-07-12] MEDS: VANCOCIN 275 MG IV (06:28)
[2023-07-12 06:46] LABS: Blood Urea Nitrogen 15 mg/dl (9-20); Estimated Creatinine Clearance 87 ml/min; Glucose 120 mg/dl (70-99); eGFR > 60.00
[2023-07-12 06:47] LABS: Calcium 9.3 mg/dl (8.4-10.2); Carbon Dioxide 25 mmol/L (22-30); Chloride 100 mmol/L (98-107); Sodium 134 mmol/L (135-145)
[2023-07-12 07:31] LABS: Glucose - Point of Care 126 mg/dl (70-99)
[2023-07-12] MEDS: NOVOLOG FLEXPEN-MODERATE RESISTANCE SC (08:48)
[2023-07-12] MEDS: PROZAC 40 MG PO (08:48)
[2023-07-12] MEDS: ASPIR LOW (ENTERIC COATED) 81 MG PO (08:48)
[2023-07-12] MEDS: NICODERM TRANSDERMAL 21 MG TRANSDERM (08:48)
[2023-07-12] MEDS: NOVOLOG FLEXPEN 7 UNITS SC ×3 (08:49→17:04)
[2023-07-12] MEDS: ZESTRIL 5 MG PO (08:49)
--- NOTE | 2023-07-12 08:55 | PHA.VAN.FU ---
Vancomycin Assessment / Plan
- Assessment
Renal Function: SCR Decreasing
WBC's are: WNL
In the past 24 hrs, patient has been: Afebrile
Concomitant Antimicrobials: piperacillin/tazobactam
- Assessment - Trough Based Monitoring
Trough Value: 16.6
Level Today was: Appropriate
Level Comments: drawn ~11H after 4th maintenance dose
- Dosing Plan
Adjust Regimen to: Vanc 1000mg Q12H
New Regimen Predicts: Trough (13 by linear PK)
- Monitoring Plan
No level(s) ordered at this time: consider repeat levels in next several days
- Follow Up
Pharmacy will continue to follow.
Vancomycin Follow UP
- -
Patient Age: 67
Patient Sex: Male
Vancomycin Day #: 4
Indication: Skin And Soft Tissue
Requesting Provider: Dr. Cadet
Pertinent Antimicrobial Allergies:
NKDA
Height / Weight:
Height 6 ft
Actual Weight 93.077 kg
Pertinent Past Medical History: DM
- Vital Signs / Lab Results
Temp Pulse Resp BP Pulse Ox
97.5 F 47 14 127/68 97
07/12/23 07:35 07/12/23 08:49 07/12/23 07:35 07/12/23 08:49 07/12/23 07:35
Lab Results - Hematology
07/10/23 07/11/23 07/12/23
06:28 06:56 05:25
WBC 10.6 8.4 5.8
Lab Results - Chemistry
07/10/23 07/11/23 07/12/23
06:28 06:56 05:25
BUN 15 18 15
Creatinine 0.9 1.1 0.9
Estimated Creat Clear 87 72 87
Microbiology Results
07/10/23 13:37 Wound Culture - Preliminary
Neck Staph aureus MRSA
Gram Stain - Preliminary
07/08/23 19:56 Blood Culture - Preliminary
Blood/Venous No Growth in 72 hours- Final report to follow
07/08/23 19:56 Blood Culture - Preliminary
Blood/Venous No Growth in 72 hours- Final report to follow
Therapeutic Drug Monitoring
Vancomycin Trough 16.6 ug/ml (5-20) 07/12/23 05:25
--- NOTE | 2023-07-12 10:42 | W.PN.UPDATE ---
Update Note
Progress Note Update
L neck still hurting but improved
Afebrile, WBC normal
BS better controlled on insulin
PE - Neck still c cellulitis, with compression, still c purulent oozing from wound
Also noticed small lesion on forehead, pt states there for a few weeks
A/P L neck soft tissue infection
Some improvement
More frequent warm soaks to area, spontaneously draining
Continue Vancomycin, await sensitivities
DM management
Will need follow up as outpt, not only for neck but also to check and possibly biopsy of forehead lesion
[2023-07-12] MEDS: DILAUDID 0.5 MG IV ×3 (11:46→20:12)
[2023-07-12 11:52] LABS: Glucose - Point of Care 154 mg/dl (70-99)
[2023-07-12] MEDS: NOVOLOG FLEXPEN-MODERATE RESISTANCE 1 UNITS SC (12:10)
--- NOTE | 2023-07-12 13:12 | PN.DE.MGMTRT ---
Insulin Management
- -
07/12/2023 Diabetes Management Follow up
Patient admitted for swelling L neck, mastoiditis vs skin abscess. PMH HCL, HTN, type 2 diabetes for ~ 15 years. Prior to admission was taking 1000 mg metformin BID. A1C on admission 13.9% cr .9, eGFR >60.
Met with patient at bedside, awake alert and oriented. His personal hygiene is poor, he is able to discuss his diabetes care. He admits he was prescribed insulin in the past but his helped him with it, she has so he stopped it.
AC novolog increased to 7 units,07/09. Glucose range pre meal yesterday 128 to 173. Lantus 16 units @ hs continues, fasting glucose this AM 120.
Provided new glucose monitor and instructed, yesterday; patient states he has tested his glucose in the past. Nurse reports he needed step by step assistance with insulin prep and injection. I did review steps with him again today. Provided BD
Radha needles for patient to practice self injections with nursing supervision.
Diabetes History
- -
Type of Diabetes: 2 requiring insulin
Pre-Admission Diabetes Regimen
07/12/23
05:25
Creatinine 0.9
Lab Results
Hemoglobin A1c 13.9 % (4.0-5.6) H 07/09/23 06:27
Insulin Pump Settings
IP Diabetes Regimen
07/11/23 07/11/23 07/12/23
16:52 20:57 05:25
Glucose 120 H
POC Glucose 148 H 128 H
07/12/23 07/12/23
07:28 11:33
Glucose
POC Glucose 126 H 154 H
Meal type: Dinner
Amount consumed: 100%
Patient Education
--- NOTE | 2023-07-12 16:05 | CM ---
Reviewed the chart notes and spoke with the patient at the bedside. IMM signed and placed on the chart. CM continues to be available to patient/family and is monitoring medical plan for needs at discharge.
Plan: Discharge to home with no additional need being identified at this time.
--- NOTE | 2023-07-12 16:23 | W.PN.HOSP.TC ---
Addendum entered and electronically signed by Balta Shaikh MD 07/12/23 21:17:
Attending Addendum-
I saw and evaluated the patient. I reviewed the resident�s note and agree with findings and plan as documented in the resident�s note. afebrile and paoin improved. still with minimal drainage present. Full 12 point ROS reviewed and negative except
as documented. Exam: GEN NAD, Neck- left sided neck mass @ [id number] tender fluctuant minimal brown drainage, heart RRR lungs clear abd soft LE no edema Plan:
# MRSA Left Neck mass infection- likely infected sebaceous cyst, 07/09-bedside I and D Dr. Snider, cx growing MRSA sensitivities reviewed, cont vancomycin. apply warm ccompress and massage to expectorate more fluid/pus. Repeat cbc in am cont wound
care. DC in am on PO abx
# Hyponatremia- mild- cont to monitor repeat BMP in am
# IDDM- hba1c 13.1- much better controlled, cont daily DM education, will need to be on BB and mealtime insulin as OP, continue current regimen- BB and mealtime- 16, cont to trend accucheck q ac q hs hold metformin in case requires rads
involving dye or OR/ restart on DC
# HTN- controlled on decrease new lisinopril, cont to monitor closely
# Leukocytosis- resolved, cont to monitor repeat CBC in am
# HLD- cont meds
# Tobacco Abuse- cont socorro patch counselled re cessation
# GERD- cont meds
# Hypothyroidism- cont meds
# Peripheral Neuropathy- cont meds
# Depression- cont meds
# Pulmonary Nodule- advised to follow up as OP
Time spent coordinating care, review of plan of care with resident, DC planning, review of records, med rec, consults, notes, labs, rads, d/w nursing � 53 mins
Original Note:
Today's Communication/Plan
-
Plan to discharge tomorrow on oral antibiotics
Assessment / Plan
Assessment / Plan
Impression
Left neck abscess
Uncontrolled diabetes mellitus type 2
Hypertension
History of bipolar disorder
Current tobacco user
Plan
The patient is a 67 yo male with PMH significant for DM, essential HTN, HLD, uncontrolled DM - pt has fear of needles (self administering needles) and cannot give himself insulin, presents due to an enlarging left lateral posterior neck mass that is
associated with severe neck pain, redness, swelling behind left ear. No fevers, no chills, no n/v/d, no abdominal complaints, no CP, no SOB.
Left neck abscess
I&D
Wound culture positive for MRSA and few coagulase-negative Staphylococcus
continue vancomycin-day 4
Discontinue Zosyn
More frequent warm compresses, attempt to drain the pus, tiny amount of drainage. The area is draining spontaneously.
CBC BMP in a.m.
Plan to discharge tomorrow on oral antibiotics, will switch to doxycycline 100 mg twice daily for 6 days
-Follow-up outpatient with ENT for the abscess and lesion on the forehead.
Uncontrolled diabetes mellitus type 2
Blood glucose level improving, today 120
Continue basal insulin 16 units, NovoLog dose to 7 units 15 minutes before each meal
Continue sliding scale
Hold metformin
Goal blood glucose between 1 40-180
Monitor blood glucose level, serial Accu-Cheks
Hypertension
Blood pressure 99/55 this a.m.
Decrease lisinopril to 5 mg
History of bipolar disorder
Continue Seroquel, fluoxetine
Current current tobacco user
21 mg nicotine patch
Anticipated Discharge: Within 24 hours
Subjective/Interval History
-
Date of Service: July 12, 2023
Objective Data
-
Labs:
Laboratory Results
07/12/23
05:25
WBC 5.8
Hgb 10.4 L
Hct 34.3 L
Plt Count 203
Sodium 134 L
Potassium 4.0
Chloride 100
Carbon Dioxide 25
BUN 15
Creatinine 0.9
Glucose 120 H
Calcium 9.3
Vital Signs:
Vital Signs
Temp Pulse Resp BP Pulse Ox
98.1 F 61 14 156/70 97
07/12/23 15:40 07/12/23 15:40 07/12/23 15:40 07/12/23 15:40 07/12/23 15:40
I&O
07/11/23 07/12/23 07/13/23
06:59 06:59 06:59
Intake Total 915 / 915 1340 / 1340
Balance 915 / 915 1340 / 1340
Review of Systems
-
History Source: Patient
All other systems: Reviewed and negative
Physical Exam
-
General: No Apparent Distress
HEENT: Atraumatic and Neck Masses (Large erythematous mass has decreased in size, hard and tender to touch)
Respiratory: Clear to Auscultation
Cardiac: Regular Rhythm and S1/S2
Musculoskeletal: No Edema
Neuro: AO x 3
Psych: Calm
[2023-07-12 16:54] LABS: Glucose - Point of Care 164 mg/dl (70-99)
[2023-07-12] MEDS: NOVOLOG FLEXPEN-LOW RESISTANCE 1 UNITS SC (17:05)
[2023-07-12] MEDS: VANCOCIN 200 IV (17:06)
[2023-07-12] MEDS: SEROQUEL 400 MG PO (21:34)
[2023-07-12 22:08] LABS: Glucose - Point of Care 111 mg/dl (70-99)
[2023-07-12] MEDS: LANTUS 0.160000000000000003 UNITS SC (22:08)
[2023-07-13 03:52] VITALS: BP 114/69
[2023-07-13 05:00] LABS: % Basophils 0.6 % (0-2); % Eosinophils 4.6 % (0-6); % Immature Granulocytes 0.4 % (0-0.5); % Lymphocytes 26.8 % (20.5-51.1); % Monocytes 8.7 % (1.7-9.3); % Neutrophils 58.9 % (42.2-75.2); Absolute Eosinophils 0.3 10^3/uL (0-0.7); Absolute Lymphocytes 1.9 10^3/uL (1.2-3.4); Absolute Monocytes 0.6 10^3/uL (0.1-0.6); Absolute Neutrophils 4.1 10^3/uL (1.4-6.5); Hematocrit 33.4 % (39.0-52.0); Hemoglobin 10.4 g/dL (13.0-18.0); Mean Corp Hgb Conc. 31.1 g/dL (33.0-37.0); Mean Corpuscular Hgb 24.1 pg (27.0-31.0); Mean Corpuscular Volume 77.5 fL (80.0-94.0); Nucleated Red Blood Cells % 0 % (-); Platelet Count 222 10^3/uL (130-400); Red Blood Cell Count 4.31 10^6/uL (4.70-6.10)
[2023-07-13] MEDS: VANCOCIN 200 IV (05:15)
[2023-07-13 05:20] LABS: Blood Urea Nitrogen 17 mg/dl (9-20); Calcium 9.6 mg/dl (8.4-10.2); Carbon Dioxide 26 mmol/L (22-30); Chloride 100 mmol/L (98-107); Estimated Creatinine Clearance 98 ml/min; Glucose 137 mg/dl (70-99); Potassium 3.9 mmol/L (3.5-5.1); Sodium 133 mmol/L (135-145); eGFR > 60.00
[2023-07-13 07:00] VITALS: BP 118/85
[2023-07-13 07:58] LABS: Glucose - Point of Care 138 mg/dl (70-99)
[2023-07-13] MEDS: ZESTRIL 5 MG PO (08:25)
[2023-07-13] MEDS: ASPIR LOW (ENTERIC COATED) 81 MG PO (08:25)
[2023-07-13] MEDS: PROZAC 40 MG PO (08:25)
[2023-07-13] MEDS: NICODERM TRANSDERMAL 21 MG TRANSDERM (08:26)
[2023-07-13] MEDS: NOVOLOG FLEXPEN 7 UNITS SC ×2 (08:27→13:40)
[2023-07-13] MEDS: NOVOLOG FLEXPEN-LOW RESISTANCE SC (08:28)
[2023-07-13] MEDS: DILAUDID 0.5 MG IV ×2 (09:07→13:39)
--- NOTE | 2023-07-13 10:46 | PHA.VAN.FU ---
Vancomycin Assessment / Plan
- Assessment
Renal Function: SCR Decreasing (1.1-<0.9->0.8)
WBC's are: WNL
In the past 24 hrs, patient has been: Afebrile
Concomitant Antimicrobials: none
- Assessment - Trough Based Monitoring
Trough Value: 16.6 on 07/12/23 (regimen was 1250 mg q12h)
- Dosing Plan
Continue: vancomycin 1000 mg q12h
- Monitoring Plan
No level(s) ordered at this time: consider repeat levels in next couple days if still on
- Follow Up
Pharmacy will continue to follow.
Vancomycin Follow UP
- -
Patient Age: 67
Patient Sex: Male
Vancomycin Day #: 5
Indication: Skin And Soft Tissue
Requesting Provider: Dr. Cadet
Pertinent Antimicrobial Allergies:
NKDA
Height / Weight:
Height 6 ft
Actual Weight 93.077 kg
Pertinent Past Medical History: DM
- Vital Signs / Lab Results
Temp Pulse Resp BP Pulse Ox
98.0 F 67 18 118/85 99
07/13/23 07:00 07/13/23 08:25 07/13/23 07:00 07/13/23 08:25 07/13/23 07:00
Lab Results - Hematology
07/11/23 07/12/23 07/13/23
06:56 05:25 04:30
WBC 8.4 5.8 7.0
Lab Results - Chemistry
07/11/23 07/12/23 07/13/23
06:56 05:25 04:30
BUN 18 15 17
Creatinine 1.1 0.9 0.8
Estimated Creat Clear 72 87 98
Microbiology Results
07/08/23 19:56 Blood Culture - Preliminary
Blood/Venous No Growth in 4 days- Final report to follow
07/08/23 19:56 Blood Culture - Preliminary
Blood/Venous No Growth in 4 days- Final report to follow
07/10/23 13:37 Wound Culture - Final
Neck Staph aureus MRSA
Coagulase neg. staphylococcus
Gram Stain - Final
Therapeutic Drug Monitoring
Vancomycin Trough 16.6 ug/ml (5-20) 07/12/23 05:25
[2023-07-13 11:00] VITALS: BP 145/68
--- NOTE | 2023-07-13 11:16 | PN.DE.MGMTRT ---
Insulin Management
- -
07/13/2023 Diabetes Management Follow up
Patient admitted for swelling L neck, mastoiditis vs skin abscess. PMH HCL, HTN, type 2 diabetes for ~ 15 years. Prior to admission was taking 1000 mg metformin BID. A1C on admission 13.9% cr .9, eGFR >60.
Met with patient at bedside, awake alert and oriented. He is able to discuss his diabetes care. He admits he was prescribed insulin in the past but his helped him with it, she has so he stopped it.
AC novolog increased to 7 units started 07/09. Glucose range pre meal yesterday 128 to 154. Lantus 16 units @ hs continues, fasting glucose this AM 120.
Provided new glucose monitor and instructed, 07/10; patient states he has tested his glucose in the past. Nurse reports he still requires some verbal cues for insulin insulin prep and injection but he is improving. I did review steps with him again
today. Provided BD Radha needles for patient to practice self injections with nursing supervision.
Diabetes History
- -
Type of Diabetes: 2 requiring insulin
Pre-Admission Diabetes Regimen
07/13/23
04:30
Creatinine 0.8
Lab Results
Hemoglobin A1c 13.9 % (4.0-5.6) H 07/09/23 06:27
Insulin Pump Settings
IP Diabetes Regimen
07/12/23 07/12/23 07/12/23
11:33 16:53 22:02
Glucose
POC Glucose 154 H 164 H 111 H
07/13/23 07/13/23
04:30 07:57
Glucose 137 H
POC Glucose 138 H
Meal type: Dinner
Meal type: Lunch
Meal type: Breakfast
Amount consumed: 85%
Amount consumed: 50%
Amount consumed: 100%
Patient Education
[2023-07-13 11:42] LABS: Glucose - Point of Care 194 mg/dl (70-99)
--- NOTE | 2023-07-13 11:47 | W.PN.ENT ---
Today's Communication
-
patient seen at bedside
Impression / Plan
-
Slowly improving MRSA infection of skin
Continue Vancomycin
Subjective Data
-
getting better slowly
less tenderness
Objective Data
-
Vital Signs
Temp Pulse Resp BP Pulse Ox
98.7 F 64 16 145/68 95
07/13/23 11:00 07/13/23 11:00 07/13/23 11:00 07/13/23 11:00 07/13/23 11:00
Intake & Output
07/12/23 07/13/23 07/14/23
06:59 06:59 06:59
Intake:
Oral fluids 1240 / 1240 1720 / 1720
IV piggybacks 100 / 100 200 / 200
Other:
Number of approximated SMALL 1 2
amounts of urine
Number of approximated MODERATE 2 3 1
amounts of urine
Lab Results
07/13/23 04:30
07/13/23 04:30
Calcium 9.6 mg/dl (8.4-10.2) 07/13/23 04:30
Total Bilirubin 0.6 mg/dl (0.2-1.3) 07/08/23 19:56
AST 12 U/L (17-59) L 07/08/23 19:56
ALT 10 U/L (0-50) 07/08/23 19:56
Alkaline Phosphatase 111 U/L (38-126) 07/08/23 19:56
Physical Exam
-
right posterior neck skin swollen but decreased
Chest: Clear
Respiratory: Clear
Data Reviewed
-
Radiology Results: Report Reviewed
Micro Results: Report Reviewed
--- NOTE | 2023-07-13 13:26 | W.PN.HOSP.TC ---
Addendum entered and electronically signed by Balta Shaikh MD 07/13/23 20:52:
Attending Addendum-
I saw and evaluated the patient. I reviewed the resident�s note and agree with findings and plan as documented in the resident�s note. pain much improved, less drainage. excited to go home. Full 12 point ROS reviewed and negative except as
documented. Exam: GEN NAD, Neck- left sided neck mass @ [id number] tender fluctuant minimal brown drainage, heart RRR lungs clear abd soft LE no edema Plan:
# MRSA Left Neck mass infection- resolving, likely infected cyst, 07/09-bedside I and D Dr. Snider, cx growing MRSA DC on PO abx
# Hyponatremia- mild- cont to monitor as OP
# IDDM- hba1c 13.1- much better controlled, cont daily DM education, will need to contonue BB and mealtime insulin as OP, continue current regimen- BB and mealtime- 16, excellent control, DC home on current regimin with metformin
# HTN- controlled on new lisinopril-cont as OP
# Leukocytosis- resolved, cont to monitor repeat CBC as OP
# HLD- cont meds
# Tobacco Abuse- cont socorro patch counselled re cessation
# GERD- cont meds
# Hypothyroidism- cont meds
# Peripheral Neuropathy- cont meds
# Depression- cont meds
# Pulmonary Nodule- advised to follow up as OP
Dispo- DC home today
[facility] spent [facility], [facility] medical supplies and meds, review of plan of care with resident, DC planning, review of records, med rec, consults, notes, labs, rads, d/w nursing � 39 mins
Original Note:
Today's Communication/Plan
-
Patient doing well, discharging today
Assessment / Plan
Assessment / Plan
Impression
Left neck abscess
Uncontrolled diabetes mellitus type 2
Hypertension
History of bipolar disorder
Current tobacco user
Plan
The patient is a 67 yo male with PMH significant for DM, essential HTN, HLD, uncontrolled DM - pt has fear of needles (self administering needles) and cannot give himself insulin, presents due to an enlarging left lateral posterior neck mass that is
associated with severe neck pain, redness, swelling behind left ear. No fevers, no chills, no n/v/d, no abdominal complaints, no CP, no SOB.
Left neck abscess
Discharge home today
I&D
Wound culture positive for MRSA and few coagulase-negative Staphylococcus
More frequent warm compresses
Switching to oral antibiotics, will switch to doxycycline 100 mg twice daily for 5 days
-Follow-up outpatient with ENT for the abscess and lesion on the forehead.
Uncontrolled diabetes mellitus type 2
Blood glucose level improving
Discharge on basal insulin 16 units, NovoLog dose to 7/7/7 units 15 minutes before each meal, metformin
Glucose monitor given to the patient
Advised to check glucose before breakfast and postprandial
Hypertension
Continue lisinopril 5 mg daily
History of bipolar disorder
Continue Seroquel, fluoxetine
Current current tobacco user
21 mg nicotine patch
# EKG 07/12- JUNCTIONAL RHYTHM WITH FREQUENT PREMATURE VENTRICULAR COMPLEXES
-Discussed EKG results with Dr. Ho and the nurse.
-Patient stable to be discharged.
Anticipated Discharge: Today
Subjective/Interval History
-
Date of Service: July 13, 2023
Patient denies chest pain shortness of breath.
Objective Data
-
Labs:
Laboratory Results
07/13/23
04:30
WBC 7.0
Hgb 10.4 L
Hct 33.4 L
Plt Count 222
Sodium 133 L
Potassium 3.9
Chloride 100
Carbon Dioxide 26
BUN 17
Creatinine 0.8
Glucose 137 H
Calcium 9.6
Vital Signs:
Vital Signs
Temp Pulse Resp BP Pulse Ox
98.7 F 64 16 145/68 95
07/13/23 11:00 07/13/23 11:00 07/13/23 11:00 07/13/23 11:00 07/13/23 11:00
I&O
07/12/23 07/13/23 07/14/23
06:59 06:59 06:59
Intake Total 1340 / 1340 1919
Balance 1340 / 1340 1919
Review of Systems
-
History Source: Patient
All other systems: Reviewed and negative
Physical Exam
-
General: Obese
HEENT: Normocephalic and Atraumatic
Respiratory: Clear to Auscultation
Cardiac: Regular Rhythm and S1/S2
GI: Soft, Nontender and Nondistended
Musculoskeletal: No Edema
Skin: Warm (Erythematous mamas around the left neck near the sternocleidomastoid, improving, hard and tender to touch, spontaneous drainage from the abscess)
Neuro: AO x 3
Data Reviewed
-
Medical Tests (Nuc Med, Echo etc): Report Reviewed by me and Discussed with Physician
Labs: Labs Reviewed by me and Discussed with Physician
--- NOTE | 2023-07-13 13:35 | CM ---
CM reviewed the chart notes and spoke with the patient at the bedside. The patient is being discharged to home today with no additional needs being identified at this time. Patient drove self to hospital. CM continues to be available to
patient/family and is monitoring medical plan for needs at discharge.
Plan: Discharge to home today. Patient will drive self home.
[2023-07-13] MEDS: NOVOLOG FLEXPEN-LOW RESISTANCE 1 UNITS SC (13:40)
--- NOTE | 2023-07-13 13:44 | W.DCSUMMARY ---
Addendum entered and electronically signed by Balta Shaikh MD 07/13/23 20:52:
Attending Addendum:
Read reviewed and agree. See same day progress note for additional details.
Jimmy Shaikh MD
Original Note:
Documented by User: Lindsay Fletcher MD, Resident 07/13/23 13:45
Discharge Summary
Discharge Data
Date of Admission: 07/08/23
Date of Discharge: 07/13/23
-
Pending Results: No
Hospital Course
Discharge diagnosis
Left neck abscess
Uncontrolled diabetes mellitus type 2
Hypertension
History of bipolar disorder
Current tobacco user
Hospital course :
67-year-old male presented to the ED with swelling in his left neck. He was having the symptoms for about 2 weeks he also. Has type 2 diabetes mellitus for which he was advised insulin but as he was scared of needles he only took oral medication
which was metformin. Initial vitals in the ED hypertensive tachycardic afebrile. In the ED the patient was started with normal saline and had some lab work done blood cultures lactic acid level and imaging including CT neck with IV contrast. In
the ED labs drawn which showed blood glucose level to be 432 with A1c of 13.9. CAT scan confirmed 7x3x9.5 cm soft tissue mass in the subcutaneous tissue of the upper posterior left neck extending along the posterior margin of the left
sternocleidomastoid. IV vancomycin was started with moderate dose insulin sliding scale. As the blood cultures were still pending, we added another medication IV Zosyn for broader coverage. ENT was consulted and an attempt for incision and
drainage was was performed which extracted 10 mL of purulent fluid. Blood culture showed positive for MRSA. In the meantime regarding his uncontrolled diabetes mellitus, patient was started on 12 units of Levemir and 4 units of NovoLog. Blood
glucose were trending down, 287<432. Goal blood glucose level between 1 40-1 80. Over the course of hospital stay, let Levemir was switched to Lantus and dose was titrated up to 16 units, NovoLog up to 7 units with sliding scale. Diabetic nurse
practitioner counseled the patient about the use of FlexPen and the importance of diabetes control. Today the plan is to discharge patient on doxycycline 100 mg twice daily for 6 more days, in regards to diabetes Lantus 16 units, NovoLog 7 units,
continue metformin 1000 mg twice daily.
Left neck abscess
Oral doxycycline twice daily for 5 days
Warm compresses 3 times daily
Uncontrolled type 2 diabetes mellitus
Starting on Lantus 16 units NovoLog 7 units 3 times daily, metformin 1000 mg twice daily
Follow-up with outpatient PCP. [facility], family medicine residency office.
Hypertension
Lisinopril 5 mg daily
History of bipolar disorder
Resume on home medications
Current tobacco use
Discharged with 21 mg nicotine patch
Discharge Plan
-
Patient Disposition: Home (Routine Discharge)
Discharge Diagnosis/Procedures: Left neck abscess
Uncontrolled diabetes mellitus type 2
Hypertension
History of bipolar disorder
Current tobacco user
Condition: Fair
Diet: Diabetic, Carb Controlled
Wound Care: clean the wound with soap and water
Frequent warm compress 4 times daily
Referrals:
Melina Rivera, [Family Provider] -
Additional Discharge Medication Instructions: Doxycycline 100 mg twice daily for 5 more days-for left neck abscess, positive for MRSA
Lantus 16 units at bedtime-type 2 diabetes
NovoLog 7 units each 15 minutes before breakfast, lunch, dinner-type 2 diabetes
Metformin 1000 mg p.o. twice daily-type 2 diabetes
Aspirin 81 mg daily
Nicotine patch 21 mg
Prescriptions:
New
metformin 1,000 mg Tablet
1,000 mg PO BID@0800,1700 Qty: 30 2RF
insulin glargine [Lantus Solostar U-100 Insulin] 100 unit/mL (3 mL) insulin pen
12 unit SC QPM 30 Days Qty: 3.6 2RF
insulin aspart U-100 [Novolog FlexPen U-100 Insulin] 100 unit/mL (3 mL) insulin pen
7 unit SC TID 30 Days Qty: 6.3 2RF
lisinopril 5 mg Tablet
5 mg PO DAILY Qty: 30 2RF
nicotine 21 mg/24 hr Patch 24 Hour
21 mg transdermal DAILY Qty: 30 0RF
(DME) pen needle, diabetic 29 gauge x 3/8' needle
See Rx Instructions .Route Qty: 100 0RF
Rx Instructions:
As directed
Continued
quetiapine [Seroquel] 200 mg Tablet
400 mg PO HS Qty: 30 0RF
Patient Comments:
verifed by [facility] [place] [phone]
aspirin 81 mg Tablet,Delayed Release (Dr/Ec)
81 mg PO DAILY Qty: 30 0RF
Patient Comments:
verifed by [facility] [place] [phone]
fluoxetine 20 MG capsule
40 mg PO DAILY Qty: 30 0RF
Patient Comments:
verifed by [facility] [place] [phone]
Discontinued
metformin 1,000 mg Tablet
1,000 mg PO BID
Patient Comments:
verifed by [facility] [place] [phone]
Discharge Orders:
Discharge Patient (As Directed); Ordered 07/13/23
Ordered By: Lindsay Fletcher
Discharge Date and Time
Discharge Date/Time: 07/13/23 17:12
Print Language: ARABIC

Documented by User: Balta Shaikh MD 07/13/23 20:48
Discharge Summary
Discharge Data
Date of Admission: 07/08/23
Date of Discharge: 07/13/23
Discharge Plan
-
Patient Disposition: Home (Routine Discharge)
Discharge Diagnosis/Procedures: Left neck abscess
Uncontrolled diabetes mellitus type 2
Hypertension
History of bipolar disorder
Current tobacco user
Condition: Fair
Diet: Diabetic, Carb Controlled
Wound Care: clean the wound with soap and water
Frequent warm compress 4 times daily
Referrals:
Melina Rivera DO [Family Provider] -
Additional Discharge Medication Instructions: Doxycycline 100 mg twice daily for 5 more days-for left neck abscess, positive for MRSA
Lantus 16 units at bedtime-type 2 diabetes
NovoLog 7 units each 15 minutes before breakfast, lunch, dinner-type 2 diabetes
Metformin 1000 mg p.o. twice daily-type 2 diabetes
Aspirin 81 mg daily
Nicotine patch 21 mg
Prescriptions:
New
metformin 1,000 mg Tablet
1,000 mg PO BID@0800,1700 Qty: 30 2RF
insulin glargine [Lantus Solostar U-100 Insulin] 100 unit/mL (3 mL) insulin pen
12 unit SC QPM 30 Days Qty: 3.6 2RF
insulin aspart U-100 [Novolog FlexPen U-100 Insulin] 100 unit/mL (3 mL) insulin pen
7 unit SC TID 30 Days Qty: 6.3 2RF
lisinopril 5 mg Tablet
5 mg PO DAILY Qty: 30 2RF
nicotine 21 mg/24 hr Patch 24 Hour
21 mg transdermal DAILY Qty: 30 0RF
(DME) pen needle, diabetic 29 gauge x 3/8' needle
See Rx Instructions .Route Qty: 100 0RF
Rx Instructions:
As directed
Continued
quetiapine [Seroquel] 200 mg Tablet
400 mg PO HS Qty: 30 0RF
Patient Comments:
verifed [facility] [place] [phone]
aspirin 81 mg Tablet,Delayed Release (Dr/Ec)
81 mg PO DAILY Qty: 30 0RF
Patient Comments:
verifed by [facility] [phone]
fluoxetine 20 MG capsule
40 mg PO DAILY Qty: 30 0RF
Patient Comments:
verifed by [facility] [phone]
Discontinued
metformin 1,000 mg Tablet
1,000 mg PO BID
Patient Comments:
verifed by [facility] [phone]
Discharge Orders:
Discharge Patient (As Directed); Ordered 07/13/23
Ordered By: Lindsay Fletcher
Discharge Date and Time
Discharge Date/Time: 07/13/23 17:12
Print Language: ARABIC
[2023-07-13 15:00] VITALS: BP 118/65
--- NOTE | 2023-07-13 15:07 | PTCARENOTE ---
Pt cleared for D/C per . Pt states he has nobody who can take him home so he is driving himself. Pt received IV Dilaudid 0.5mg at 1339. MD made aware, advised to wait 2-3 hours before letting pt leave the hospital, will discharge patient at least
3 hours post administration of IV Dilaudid per MD recommendation.
[2023-07-13 16:28] LABS: Glucose - Point of Care 168 mg/dl (70-99)
== END 2023-07-13 17:12 | disposition home or self-care (01) | DRG 603 ==
LOC: 2 NORTH 23:13
PROVIDERS: Student in an Organized Health Care Education/Training Program; ADMITTING PHYSICIAN Internal Medicine; ATTENDING PHYSICIAN Family Medicine; EMERGENCY PHYSICIAN Emergency Medicine; FAMILY PHYSICIAN Family Medicine; OTHER PHYSICIAN Otolaryngology
PROC: 0J950ZX Drainage of Left Neck Subcutaneous Tissue and Fascia, Open Approach, Diagnostic (ICD-10-PCS; 2023-07-10)
DX: L02.11 Cutaneous abscess of neck (principal); E87.1 Hypo-osmolality and hyponatremia; E11.65 Type 2 diabetes mellitus with hyperglycemia; F17.200 Nicotine dependence, unspecified, uncomplicated; E78.00 Pure hypercholesterolemia, unspecified; I10 Essential (primary) hypertension; I48.91 Unspecified atrial fibrillation; K21.9 Gastro-esophageal reflux disease without esophagitis; D72.829 Elevated white blood cell count, unspecified; G47.30 Sleep apnea, unspecified; E11.40 Type 2 diabetes mellitus with diabetic neuropathy, unspecified; E03.9 Hypothyroidism, unspecified; F20.9 Schizophrenia, unspecified; B95.62 Methicillin resistant Staphylococcus aureus infection as the cause of diseases classified elsewhere; F31.9 Bipolar disorder, unspecified; R26.9 Unspecified abnormalities of gait and mobility; L72.3 Sebaceous cyst; R91.1 Solitary pulmonary nodule; E11.42 Type 2 diabetes mellitus with diabetic polyneuropathy; M51.26 Other intervertebral disc displacement, lumbar region; Z63.4 Disappearance and death of family member; Z79.84 Long term (current) use of oral hypoglycemic drugs; Z91.148 Patient's other noncompliance with medication regimen for other reason; Z79.890 Hormone replacement therapy; Z79.85 Long-term (current) use of injectable non-insulin antidiabetic drugs; Z79.4 Long term (current) use of insulin; Z79.51 Long term (current) use of inhaled steroids
CPT/HCPCS: 70491; 80048; 80053; 80202; 82962; 83036; 83605; 85025; 87040; 87070; 87147; 87186; 87205; 93005; 96361; 96365; 96372; 96375; 99291; 99406; Q9967